=== PATIENT | female | born 1985 | race Caucasian/White ===

== ENCOUNTER 2020-01-02 00:58 | Inpatient (IN) | payer OTHER ==
[~2020-01-02] VITALS: Ht 162.6 cm; Wt 56.6 kg
[~2020-01-02 00:58] MED LIST: NOCURR
[2020-01-02] MEDS ORDERED: 0.9% SODIUM CHLORIDE 10 ML SYRINGE IVP PRN ×2 (01:30→03:15)
[2020-01-02] MEDS ORDERED: BACITRACIN 0.9 GM PACKET OINTMENT TP ONE (01:30)
[2020-01-02] MEDS ORDERED: VANCOMYCIN HCL 1 GM/D5% WATER 200 ML IV ONE (01:30)
[2020-01-02] MEDS ORDERED: ACETAMINOPHEN 500 MG TABLET PO ONE (01:30)
[2020-01-02 02:08] LABS: BASOPHILS % (AUTO) 1.4 % (0.0-2.0); EOSINOPHILS % (AUTO) 1.6 % (1.0-6.0); HEMATOCRIT 24.9 % (36-46); HEMOGLOBIN 7.7 g/dL (12.0-16.0); LYMPHOCYTES # (AUTO) 2.9 K/uL (1.0-4.8); LYMPHOCYTES % (AUTO) 24.1 % (22.0-44.0); MEAN CORPUSCULAR HEMOGLOBIN 21.4 pg (26.0-34.0); MEAN CORPUSCULAR HGB CONC 30.9 G/dL (31.0-37.0); MEAN CORPUSCULAR VOLUME 69 fL (80-100); MONOCYTES # (AUTO) 0.4 K/uL (0.1-1.0); MONOCYTES % (AUTO) 3.6 % (2.0-9.0); NEUTROPHILS # (AUTO) 8.3 K/uL (1.8-7.7); NEUTROPHILS % (AUTO) 69.3 % (40.0-70.0); RED BLOOD CELL COUNT(AUTO) 3.59 MIL/uL (4.00-5.20); RED CELL DISTRIBUTION WIDTH 18.6 % (11.5-14.5)
[2020-01-02 02:21] LABS: INR 1.1 (0.9-1.1); PROTHROMBIN TIME 11.6 SEC (9.4-11.6)
[2020-01-02] MEDS ORDERED: SODIUM CHLORIDE 0.9% 1,000 ML IV ONE (02:30)
[2020-01-02 02:34] LABS: ANION GAP 5 mmol/L (8-16); CALCIUM, TOTAL 9.4 mg/dL (8.8-10.5); CARBON DIOXIDE 31 mmol/L (22-29); CHLORIDE 100 mmol/L (98-107); CREATININE 0.93 mg/dL (0.60-1.30); GLOMERULAR FILTR. RATE CALC > 60 mL/min (>60); GLUCOSE,RANDOM 93 mg/dL (70-110); POTASSIUM 3.9 mmol/L (3.5-5.1); SODIUM SERUM 136 mmol/L (136-145); UREA NITROGEN, BLOOD 9 mg/dL (7-18)
[2020-01-02 02:36] LABS: B-TYPE NATRIURETIC PEPTIDE 79 pg/mL (0-100)
[2020-01-02 02:45] LABS: ALANINE AMINOTRANSFERASE 12 U/L (12-78); ALBUMIN 2.4 g/dL (3.4-5.0); ALKALINE PHOSPHATASE 109 U/L (46-116); ASPARTATE AMINOTRANSFERASE 12 U/L (15-37); BILIRUBIN,TOTAL 0.1 mg/dL (0.1-1.0); HCG,QUANTITATIVE 1 mIU/mL (0-6); TOTAL PROTEIN, SERUM 9.3 g/dL (6.4-8.2)
[2020-01-02 02:46] LABS: LACTIC ACID 0.7 mmol/L (0.4-2.0)
[2020-01-02 03:01] LABS: PLATELET COUNT (AUTO) 1005 K/uL (150-450)
[2020-01-02] MEDS ORDERED: ONDANSETRON HCL 4 MG/2 ML VIAL IVP PRN (03:15)
[2020-01-02] MEDS ORDERED: ACETAMINOPHEN 325 MG TABLET PO PRN ×2 (03:15→15:45)
[2020-01-02 04:25] VITALS: BP 93/36
[2020-01-02 07:53] VITALS: BP 96/62
[2020-01-02] MEDS ORDERED: HydrOXYzine PAMOATE 50 MG CAPSULE PO PRN ×2 (15:45)
[2020-01-02] MEDS ORDERED: BACLOFEN 10 MG TABLET PO PRN (15:45)
[2020-01-02] MEDS ORDERED: PROMETHAZINE HCL 25 MG TABLET PO PRN (15:45)
[2020-01-02] MEDS ORDERED: LOPERAMIDE HCL 2 MG/15 ML SUSPENSION UDCUP PO PRN (15:45)
[2020-01-02] MEDS ORDERED: MAG HYDROX/AL HYDROX/SIMETH ES 30 ML SUSPENSION UDCUP PO PRN ×2 (15:45)
[2020-01-02] MEDS ORDERED: IBUPROFEN 600 MG TABLET PO PRN ×2 (15:45)
[2020-01-02] MEDS ORDERED: DICYCLOMINE HCL 10 MG CAPSULE PO PRN (15:45)
[2020-01-02] MEDS: SODIUM CHLORIDE 0.45% 1,000 ML IV SCH (16:12)
[2020-01-02] MEDS: CloNIDine HCL 0.1 MG TABLET PO SCH ×2 (16:12→22:40)
[2020-01-02 16:45] VITALS: BP 106/69
[2020-01-02] MEDS: VANCOMYCIN HCL 750 MG in DEXTROSE 5%-WATER 250 ML IV SCH (19:40)
[2020-01-02 20:00] VITALS: BP 94/58
[2020-01-02] MEDS: LORazepam 1 MG TABLET PO PRN (22:37)
[2020-01-03] MEDS: SODIUM CHLORIDE 0.45% 1,000 ML IV SCH ×2 (04:51→12:39)
[2020-01-03 05:43] VITALS: BP 97/60
[2020-01-03] MEDS: CloNIDine HCL 0.1 MG TABLET PO SCH ×4 (06:13→22:31)
[2020-01-03 06:50] LABS: BASOPHILS % (AUTO) 0.9 % (0.0-2.0); EOSINOPHILS % (AUTO) 2.6 % (1.0-6.0); HEMATOCRIT 25.6 % (36-46); HEMOGLOBIN 8.2 g/dL (12.0-16.0); LYMPHOCYTES # (AUTO) 2.8 K/uL (1.0-4.8); LYMPHOCYTES % (AUTO) 38.9 % (22.0-44.0); MEAN CORPUSCULAR HEMOGLOBIN 22.2 pg (26.0-34.0); MEAN CORPUSCULAR HGB CONC 32.1 G/dL (31.0-37.0); MEAN CORPUSCULAR VOLUME 69 fL (80-100); MONOCYTES # (AUTO) 0.4 K/uL (0.1-1.0); NEUTROPHILS # (AUTO) 3.7 K/uL (1.8-7.7); NEUTROPHILS % (AUTO) 51.6 % (40.0-70.0); RED BLOOD CELL COUNT(AUTO) 3.71 MIL/uL (4.00-5.20); RED CELL DISTRIBUTION WIDTH 18.5 % (11.5-14.5)
[2020-01-03 07:17] LABS: ALANINE AMINOTRANSFERASE 11 U/L (12-78); ALBUMIN 1.9 g/dL (3.4-5.0); ALKALINE PHOSPHATASE 95 U/L (46-116); ANION GAP 6 mmol/L (8-16); ASPARTATE AMINOTRANSFERASE 15 U/L (15-37); BILIRUBIN,TOTAL 0.1 mg/dL (0.1-1.0); CALCIUM, TOTAL 8.6 mg/dL (8.8-10.5); CARBON DIOXIDE 29 mmol/L (22-29); CHLORIDE 102 mmol/L (98-107); CREATININE 0.84 mg/dL (0.60-1.30); GLOMERULAR FILTR. RATE CALC > 60 mL/min (>60); GLUCOSE,RANDOM 77 mg/dL (70-110); POTASSIUM 3.8 mmol/L (3.5-5.1); SODIUM SERUM 137 mmol/L (136-145); UREA NITROGEN, BLOOD 8 mg/dL (7-18)
[2020-01-03 07:36] LABS: PLATELET COUNT (AUTO) 856 K/uL (150-450)
[2020-01-03 08:01] VITALS: BP_SYST 109; BP_SYST 17; BP_DIAS 66; BP_DIAS 97
[2020-01-03] MEDS: VANCOMYCIN HCL 750 MG in DEXTROSE 5%-WATER 250 ML IV SCH ×2 (08:02→20:28)
[2020-01-03] MEDS: BACITRACIN 28 GM OINTMENT TP SCH (12:39)
[2020-01-03 12:40] VITALS: BP 114/77
[2020-01-03 16:35] VITALS: BP 131/83
[2020-01-03 16:36] VITALS: BP 131/83
[2020-01-03 20:00] VITALS: BP 113/70
[2020-01-03] MEDS: TraZODone HCL 50 MG TABLET PO PRN (20:29)
[2020-01-03] MEDS: LORazepam 1 MG TABLET PO PRN (20:29)
[2020-01-04] VITALS (7 sets, daily range): BP systolic 112–141; BP diastolic 70–90
[2020-01-04] MEDS: CloNIDine HCL 0.1 MG TABLET PO SCH ×4 (05:55→22:19)
[2020-01-04] MEDS: SODIUM CHLORIDE 0.45% 1,000 ML IV SCH ×2 (05:55→20:22)
[2020-01-04] MEDS: VANCOMYCIN HCL 750 MG in DEXTROSE 5%-WATER 250 ML IV SCH (07:58)
[2020-01-04] MEDS: CloNIDine HCL 0.1 MG TABLET PO PRN ×3 (08:08→14:30)
[2020-01-04 08:18] LABS: ANION GAP 9 mmol/L (8-16); CALCIUM, TOTAL 8.7 mg/dL (8.8-10.5); CARBON DIOXIDE 26 mmol/L (22-29); CHLORIDE 99 mmol/L (98-107); CREATININE 0.89 mg/dL (0.60-1.30); GLOMERULAR FILTR. RATE CALC > 60 mL/min (>60); GLUCOSE,RANDOM 91 mg/dL (70-110); POTASSIUM 3.4 mmol/L (3.5-5.1); SODIUM SERUM 134 mmol/L (136-145); UREA NITROGEN, BLOOD 7 mg/dL (7-18)
[2020-01-04] MEDS ORDERED: POTASSIUM CHLORIDE 20 MEQ ER TABLET PO ONE (10:00)
[2020-01-04] MEDS: LORazepam 1 MG TABLET PO PRN (12:25)
[2020-01-04] MEDS ORDERED: DOXYCYCLINE HYCLATE 100 MG TABLET PO ONE (12:45)
[2020-01-04 12:51] LABS: BASOPHILS % (AUTO) 0.4 % (0.0-2.0); LYMPHOCYTES # (AUTO) 2.5 K/uL (1.0-4.8); MONOCYTES # (AUTO) 0.4 K/uL (0.1-1.0); NEUTROPHILS # (AUTO) 3.4 K/uL (1.8-7.7)
[2020-01-04 12:57] LABS: ALANINE AMINOTRANSFERASE 12 U/L (12-78); ALBUMIN 2.3 g/dL (3.4-5.0); ALKALINE PHOSPHATASE 93 U/L (46-116); ASPARTATE AMINOTRANSFERASE 15 U/L (15-37); BILIRUBIN,TOTAL 0.2 mg/dL (0.1-1.0); EOSINOPHILS % (AUTO) 1.3 % (1.0-6.0); HEMATOCRIT 27.7 % (36-46); HEMOGLOBIN 8.5 g/dL (12.0-16.0); LYMPHOCYTES % (AUTO) 38.8 % (22.0-44.0); MEAN CORPUSCULAR HEMOGLOBIN 21.6 pg (26.0-34.0); MEAN CORPUSCULAR HGB CONC 30.5 G/dL (31.0-37.0); MEAN CORPUSCULAR VOLUME 71 fL (80-100); MONOCYTES % (AUTO) 5.7 % (2.0-9.0); NEUTROPHILS % (AUTO) 53.8 % (40.0-70.0); RED BLOOD CELL COUNT(AUTO) 3.92 MIL/uL (4.00-5.20); RED CELL DISTRIBUTION WIDTH 18.9 % (11.5-14.5); TOTAL PROTEIN, SERUM 8.6 g/dL (6.4-8.2)
[2020-01-04 13:08] LABS: PLATELET COUNT (AUTO) 924 K/uL (150-450)
[2020-01-04] MEDS: ACETAMINOPHEN 325 MG TABLET PO PRN ×2 (14:19→22:19)
[2020-01-04] MEDS: BACITRACIN 28 GM OINTMENT TP SCH (17:19)
[2020-01-04] MEDS: NICOTINE 21 MG/24 HOUR PATCH TD SCH (17:20)
[2020-01-04] MEDS ORDERED: VANCOMYCIN HCL 1 GM/D5% WATER 200 ML IV SCH (20:00)
[2020-01-04] MEDS: DOXYCYCLINE HYCLATE 100 MG TABLET PO SCH (20:22)
[2020-01-04] MEDS: TraZODone HCL 50 MG TABLET PO PRN (22:26)
[2020-01-05] MEDS: CloNIDine HCL 0.1 MG TABLET PO PRN ×3 (00:11→13:42)
[2020-01-05 04:30] VITALS: BP 123/83
[2020-01-05] MEDS: CloNIDine HCL 0.1 MG TABLET PO SCH ×2 (05:08→11:42)
[2020-01-05 06:30] LABS: BASOPHILS % (AUTO) 0.4 % (0.0-2.0); EOSINOPHILS % (AUTO) 0.3 % (1.0-6.0); HEMATOCRIT 27.4 % (36-46); HEMOGLOBIN 8.9 g/dL (12.0-16.0); LYMPHOCYTES % (AUTO) 36.9 % (22.0-44.0); MEAN CORPUSCULAR HEMOGLOBIN 22.3 pg (26.0-34.0); MEAN CORPUSCULAR HGB CONC 32.4 G/dL (31.0-37.0); MEAN CORPUSCULAR VOLUME 69 fL (80-100); MONOCYTES # (AUTO) 0.5 K/uL (0.1-1.0); MONOCYTES % (AUTO) 5.7 % (2.0-9.0); NEUTROPHILS # (AUTO) 4.6 K/uL (1.8-7.7); NEUTROPHILS % (AUTO) 56.7 % (40.0-70.0); RED BLOOD CELL COUNT(AUTO) 3.98 MIL/uL (4.00-5.20); RED CELL DISTRIBUTION WIDTH 18.7 % (11.5-14.5)
[2020-01-05 06:55] LABS: ALANINE AMINOTRANSFERASE 12 U/L (12-78); ALBUMIN 2.3 g/dL (3.4-5.0); ALKALINE PHOSPHATASE 91 U/L (46-116); ANION GAP 11 mmol/L (8-16); ASPARTATE AMINOTRANSFERASE 13 U/L (15-37); BILIRUBIN,TOTAL 0.2 mg/dL (0.1-1.0); CALCIUM, TOTAL 8.9 mg/dL (8.8-10.5); CARBON DIOXIDE 24 mmol/L (22-29); CHLORIDE 102 mmol/L (98-107); CREATININE 0.89 mg/dL (0.60-1.30); GLOMERULAR FILTR. RATE CALC > 60 mL/min (>60); GLUCOSE,RANDOM 111 mg/dL (70-110); PLATELET COUNT (AUTO) 835 K/uL (150-450); SODIUM SERUM 137 mmol/L (136-145); TOTAL PROTEIN, SERUM 8.4 g/dL (6.4-8.2); UREA NITROGEN, BLOOD 7 mg/dL (7-18)
[2020-01-05] MEDS: NICOTINE 21 MG/24 HOUR PATCH TD SCH (08:05)
[2020-01-05] MEDS: DOXYCYCLINE HYCLATE 100 MG TABLET PO SCH (08:05)
[2020-01-05 08:19] VITALS: BP 126/77
[2020-01-05] MEDS: SODIUM CHLORIDE 0.45% 1,000 ML IV SCH (11:43)
[2020-01-05] MEDS: BACITRACIN 28 GM OINTMENT TP SCH (12:40)
[2020-01-05] MEDS ORDERED: DOXY-354 PO (12:45)
[2020-01-05] MEDS: ACETAMINOPHEN 325 MG TABLET PO PRN (13:42)
== END 2020-01-05 14:30 | DRG 896 ==
LOC: EMS 00:58 → 6N 02:00 → 6S 01-05 10:31
PROVIDERS: ADMIT Hospitalist; ATTEND Hospitalist
DX: F11.23 Opioid dependence with withdrawal (principal); E43 Unspecified severe protein-calorie malnutrition; F17.210 Nicotine dependence, cigarettes, uncomplicated; D47.3 Essential (hemorrhagic) thrombocythemia; S71.102A Unspecified open wound, left thigh, initial encounter; S71.101A Unspecified open wound, right thigh, initial encounter; X58.XXXA Exposure to other specified factors, initial encounter; Z20.828 Contact with and (suspected) exposure to other viral communicable diseases; Z68.21 Body mass index [BMI] 21.0-21.9, adult; Z88.2 Allergy status to sulfonamides; Z79.899 Other long term (current) drug therapy; Y93.89 Activity, other specified; Y92.89 Other specified places as the place of occurrence of the external cause; Y99.8 Other external cause status
CPT/HCPCS: 83605; 83735; 84145; 86850; 86900; 86901; 87040; 87426; G0480; J3370; J7060; 36415-L1; 36415-TC; 71045-TC; 80202-TC; U0003-CS

== ENCOUNTER 2020-03-08 12:49 | Emergency (ER) | payer OTHER ==
[~2020-03-08] VITALS: Ht 157.5 cm; Wt 52.3 kg
[~2020-03-08 12:49] MED LIST changes: +DOXY-354 PO; -NOCURR
[2020-03-08 13:33] LABS: COVID AG,FIA SOURCE NASOPHARYNGEAL
[2020-03-08 14:37] VITALS: BP 140/90
== END 2020-03-08 14:56 | disposition home or self-care (01) ==
LOC: EMS 12:54
DX: Z20.828 Contact with and (suspected) exposure to other viral communicable diseases (principal); R03.0 Elevated blood-pressure reading, without diagnosis of hypertension; F17.210 Nicotine dependence, cigarettes, uncomplicated; Z88.2 Allergy status to sulfonamides
CPT/HCPCS: 87426

== ENCOUNTER → 2020-04-08 | Outpatient (CLI) | payer OTHER ==
[2020-04-08 11:46] LABS: BASOPHILS % (AUTO) 1.3 % (0.0-2.0); EOSINOPHILS % (AUTO) 2.7 % (1.0-6.0); HEMATOCRIT 39.7 % (36-46); LYMPHOCYTES # (AUTO) 2.1 K/uL (1.0-4.8); LYMPHOCYTES % (AUTO) 43.7 % (22.0-44.0); MEAN CORPUSCULAR HEMOGLOBIN 26.6 pg (26.0-34.0); MEAN CORPUSCULAR HGB CONC 32.7 G/dL (31.0-37.0); MEAN CORPUSCULAR VOLUME 81 fL (80-100); MONOCYTES # (AUTO) 0.4 K/uL (0.1-1.0); NEUTROPHILS # (AUTO) 2.1 K/uL (1.8-7.7); NEUTROPHILS % (AUTO) 43.3 % (40.0-70.0); PLATELET COUNT (AUTO) 549 K/uL (150-450); RED BLOOD CELL COUNT(AUTO) 4.89 MIL/uL (4.00-5.20); RED CELL DISTRIBUTION WIDTH 15.9 % (11.5-14.5)
[2020-04-08 12:20] LABS: ALANINE AMINOTRANSFERASE 16 U/L (12-78); ALBUMIN 3.7 g/dL (3.4-5.0); ALKALINE PHOSPHATASE 109 U/L (46-116); ANION GAP 15 mmol/L (8-16); ASPARTATE AMINOTRANSFERASE 16 U/L (15-37); BILIRUBIN,TOTAL 0.4 mg/dL (0.1-1.0); CALCIUM, TOTAL 8.5 mg/dL (8.8-10.5); CARBON DIOXIDE 24 mmol/L (22-29); CHLORIDE 106 mmol/L (98-107); GLOMERULAR FILTR. RATE CALC > 60 mL/min (>60); GLUCOSE,RANDOM 103 mg/dL (70-110); SODIUM SERUM 145 mmol/L (136-145); TOTAL PROTEIN, SERUM 8.2 g/dL (6.4-8.2); UREA NITROGEN, BLOOD 15 mg/dL (7-18)
== END | disposition home or self-care (01) ==
LOC: LABMN 10:38
PROVIDERS: ATTEND Internal Medicine
DX: Z86.19 Personal history of other infectious and parasitic diseases (principal)
CPT/HCPCS: 80074

== ENCOUNTER 2020-08-18 13:09 | Emergency (ER) | payer OTHER ==
[~2020-08-18] VITALS: Ht 162.6 cm; Wt 54.5 kg
[2020-08-18 15:12] VITALS: BP 137/89
== END 2020-08-18 15:13 | disposition home or self-care (01) ==
LOC: EMS 13:13
DX: Z11.59 Encounter for screening for other viral diseases (principal); F41.9 Anxiety disorder, unspecified; F17.210 Nicotine dependence, cigarettes, uncomplicated
CPT/HCPCS: 99283